=== PATIENT | male | born 1935 | race Caucasian/White ===

== ENCOUNTER 2016-07-28 07:18 | Inpatient (IN) | payer BC ==
[2016-07-26 15:32] LABS: HEMATOCRIT 29.7 % (40.0-51.0); HEMOGLOBIN 9.1 g/dL (13.6-17.8)
[2016-07-26 15:45] LABS: BUN (BLOOD UREA NITROGEN) 11 MG/DL (6-23); CALCIUM, SERUM 9.7 MG/DL (8.5-10.4); CHLORIDE, SERUM 103 MMOL/L (96-112); CO2 (CARBON DIOXIDE) 29 MMOL/L (24-34); CREATININE 0.75 MG/DL (0.70-1.30); GFR AFRICAN AMERICAN 101 ML/MIN (>=60); GFR NON AFRICAN AMERICAN 87 ML/MIN (>=60); GLUCOSE, SERUM 111 MG/DL (60-99); POTASSIUM, SERUM 4.1 MMOL/L (3.5-5.3); SODIUM, SERUM 140 MMOL/L (135-148)
--- NOTE | ~2016-07-28 | DS ---
Discharge Summary [facility] [address] [facility] [place]. [address] NAME: DIANNA KEY : 36 STATUS : DIS IN PAT#: [id number] AGE: 80 ADM/REG DATE : 07/28/16 MR#: [id number] REPORT SERV DATE: 08/16/16 DICTATED BY: CHRIS PERSAUD DATE: 08/14/16 REPORT STATUS : Draft TRANSCRIBED BY: SENG DATE: 08/14/16 Data Collection from hospitalization DISCHARGE DIAGNOSES: 1. 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 2. Obesity. 3. Diabetes mellitus type 2. 4. Hypertension. 5. History of thyroid disorder. CONSULTATIONS: None. PROCEDURES PERFORMED: 1. Diagnostic laparoscopy with conversion to the open colectomy secondary to enterotomy. 2. Sigmoid colectomy with 29 mm EEA stapled anastomosis. 3. Segmental small bowel resection with Ileo-ileostomy; all 07/28/2016. PATHOLOGY: Sigmoid resection adenocarcinoma; segments of colon and anastomotic rings. No diagnostic change. Small bowel segmental resection; submucosal hematoma, serosal adhesion, focal. No tumor identified. MEDICATIONS: Vitamin C 500 mg daily, Ziac one daily, Avapro 300 mg daily, levothyroxine sodium 125 mcg daily, minocycline 50 mg every 48 hours, ferrous sulfate 325 mg three times daily, fish oil 600 mg daily, [place] 5/325 one every six hours as needed. CONDITION AT DISCHARGE: Upon discharge, he did appear to be doing well and had no complaints. DISPOSITION: He had been discharged home to continue a regular diet with activity as discussed. He is to follow up with me in the office on 08/10/2016. HOSPITAL COURSE: This 80-year-old male was seen in the office for sigmoid colon cancer with near obstruction. He was aware of RBA of colectomy, possible colostomy, and wished to proceed with this. He was admitted for surgery and further treatment. Upon admission to the hospital, he had been taken to the operative operating room where he did undergo the above procedure. He tolerated this well and was transferred to the recovery room. On postop day 1, he did appear to be doing well and had no complaints. He was afebrile, and his vital signs were stable. He was continued on supportive care. He had been seen by MATTHIEU KennyP-BC for medical management. He was felt to be doing well postoperatively. His oral agents for his diabetes were placed on hold. He had been placed on an insulin instead. On postop day #2, he had complaints of bloating and abdominal pain. However, he had no nausea noted. He had been placed on low-dose amlodipine for his blood pressure. On postop day 3, he was noted to be less nauseated, and his blood pressure was trending downward. On postop day #4, he had no complaints noted, and his diet was being slowly advanced. He was continued on supportive care and did appear to be doing well. He had been placed back on Ziac. On postop day 5, he was tolerating oral intake and was encouraged to ambulate. He did continue to do well. As he was doing well, he was then Discharge Summary [address] [place]. [address] NAME: DIANNA KEY : 36 STATUS : DIS IN PAT#: [id number] AGE: 80 ADM/REG DATE : 07/28/16 MR#: [id number] REPORT SERV DATE: 08/16/16 DICTATED BY: CHRIS PERSAUD DATE: 08/14/16 REPORT STATUS : Draft TRANSCRIBED BY: SENG DATE: 08/14/16 discharged on postop day 6 with the above instructions. Information collected by: Ning LockwoodI.T. I submit the above information as my discharge summary. RADHA/SENG Chris Persaud M.D. / [id number] CC: Armando Gruber D.O.
--- NOTE | ~2016-07-28 | OP ---
Record Of Operation [facility] [address] [place]. [address] NAME: DIANNA KEY : 36 STATUS : ADM IN PAT#: [id number] AGE: 80 ADM/REG DATE : 07/28/16 MR#: [id number] REPORT SERV DATE: 07/28/16 DICTATED BY: CHRIS PERSAUD DATE: 07/28/16 REPORT STATUS : Draft TRANSCRIBED BY: MODL DATE: 07/28/16 DATE OF PROCEDURE: 07/28/2016 PREOPERATIVE DIAGNOSES: 1. 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 2. Obesity. 3. Diabetes mellitus type 2. POSTOPERATIVE DIAGNOSES: 1. 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 2. Obesity. 3. Diabetes mellitus type 2. PROCEDURES: 1. Diagnostic laparoscopy with conversion to the open colectomy secondary to enterotomy. 2. Sigmoid colectomy with 29 mm EEA stapled anastomosis. 3. Segmental small bowel resection with the ileoileostomy. FINDINGS: The patient was noted to have a partial injury to the small bowel with questionable full-thickness involvement upon placement of the Veress needle and the initial 8 mm laparoscope. When the camera was inserted due to question of this small bowel injury, the procedure was then converted to open laparotomy. During the laparoscopic portion, there was no evidence of any peritoneal drop mets and the large mass of the right lobe of the liver was visible on most of the anterior surface of the right lateral lobe of the liver. OPERATIVE TECHNIQUE: The patient was brought to the operating room and placed on the table in supine position. He had preoperative IV antibiotics and bowel prep. He underwent general endotracheal anesthesia and was prepped and draped in sterile fashion. A Medrano catheter was placed, and he was placed in lithotomy position. A time-out was completed after general endotracheal anesthesia. Local anesthesia was instilled to the supraumbilical skin. A 15-blade knife was used to make incision through the base of the umbilicus. The skin and fascia were elevated. The Veress needle was inserted. Water drop test was safely performed. Pneumoperitoneum was then obtained, but then it showed a leak. This was tried once again, and at this point, an Optiview 8 mm trocar was used. The abdomen was entered and insufflated. It was uncertain if this was within the bowel or the preperitoneal, and the decision was then made after evaluation of the rest of the abdomen revealed no evidence of any peritoneal drop mets to open the patient. The single supraumbilical trocar was removed. A laparotomy incision was made. The patient's left sigmoid colon was then mobilized along the white line of [place] medially and laterally, and the tumor was noted to be in the mid sigmoid colon. The entire sigmoid was then mobilized with care taken not to involve the retroperitoneal structures and the windows were created in the mesentery of the rectum and in the descending and sigmoid colon junction. The bowel was then divided with a contour stapler distally and a 75 mm linear stapler proximally. The intervening mesenteric segment was then scored with electrocautery and divided with the energy hand-held device. Record Of Operation [facility] [address] [facility] [place]. [address] NAME: DIANNA KEY : 36 STATUS : ADM IN PAT#: [id number] AGE: 80 ADM/REG DATE : 07/28/16 MR#: [id number] REPORT SERV DATE: 07/28/16 DICTATED BY: CHRIS PERSAUD DATE: 07/28/16 REPORT STATUS : Draft TRANSCRIBED BY: MODL DATE: 07/28/16 The segment was then sent to pathology, and it was noted to have gross negative margins. The rest of the liver was examined and the masses were noted on both the left and right liver. There was no evidence of any other drop mets or segmental metastasis. There was a question of small metastatic deposit in the small bowel near the enterotomy and this segment was removed. At this point, first the bowel ends were prepared and the 29 mm Sizer was easily passed. The colorectal anastomosis was then completed with a stapler and the suture line was oversewn. Water was placed in the pelvis, and it was insufflated with no evidence of any leak. There was no evidence of any bleeding or other visual abnormalities at this point. The involved small bowel segment was then identified and the mesentery was divided on either side for approximately 8 to 10 cm. The intervening mesentery was then excised. The MORGAN stapler was used with a single firing to divide the small bowel and then an ileoileostomy was created with the linear stapler. It was noted to be widely patent and the ileoileostomy was then closed with a TA60 stapler. All the suture lines of the small bowel were then oversewn with interrupted 3-0 Lembert sutures. The abdomen was once again irrigated, and there was no evidence of any other visual abnormalities. The anterior fascia was reapproximated using a 0 looped PDS suture. The subcutaneous tissues were then thoroughly irrigated and the subcutaneous tissues were reapproximated using running 3-0 Vicryl suture followed by running Monocryl subcuticular stitch. Dermabond was applied, followed by an Aquacel Ag surgical dressing and a binder. He was extubated and taken to the recovery room in stable condition. All sponge and needle counts reported correct. ELIZABETH/MODAdamaris Chris Persaud M.D. / [id number] CC: Chris Persaud M.D.
[~2016-07-28 07:18] MED LIST: ACTOS45 PO; AVAPRO300 MG PO; FERROUS SULF325 M1 PO; FISH OIL300 MG PO; GLUCOPHAGE1000 MG PO; LEVOTHYROXIN125 MCG PO; MINOCIN50 PO; VITC500 PO; ZIAC10 PO; [UNRECOGNIZED DRUG - OTHER] PO
[2016-07-28 07:48] LABS: BASOPHILS 0.6 %; BASOPHILS ABSOLUTE 0.03 10/3/uL (0.0-0.16); EOSINOPHILS 1.7 %; EOSINOPHILS ABSOLUTE 0.08 10/3/uL (0.0-0.53); HEMATOCRIT 29.2 % (40.0-51.0); IMMATURE GRANULOCYTES 0.2 %; IMMATURE GRANULOCYTES ABSOLUTE 0.01 10/3/uL (0.0-0.11); LYMPHOCYTES 20.1 %; LYMPHOCYTES ABSOLUTE 0.95 10/3/uL (0.67-4.30); MEAN CORPUS HGB CONC 30.8 g/dL (32.0-36.0); MEAN CORPUSCULAR HEMOGLOB 23.7 pg (26.0-34.0); MEAN CORPUSCULAR VOLUME 76.8 fL (80-100); MEAN PLATELET VOLUME 8.5 fL (9.2-13.0); MONOCYTES 12.3 %; MONOCYTES ABSOLUTE 0.58 10/3/uL (0.21-1.20); NEUTROPHILS 65.1 %; NEUTROPHILS ABSOLUTE 3.07 10/3/uL (2.02-8.40); PLATELET COUNT 318 10/3/uL (150-400); RBC DISTRIBUTION WIDTH 26.3 % (12.0-16.0); WHITE BLOOD CELLS 4.7 10/3/uL (4.5-10.5)
[2016-07-28 07:49] LABS: MANUAL DIFF NO %
[2016-07-28 08:44] LABS: HYPOCHROMIA 1+ (3-10/OIF) (0-2/OIF); MICROCYTES 1+ (5-10/OIF) (0-5/OIF); PLATELET ESTIMATE ADQ (ADEQUATE); RBC MORPHOLOGY ABN (NORMAL)
[2016-07-29 06:20] LABS: BASOPHILS 0.1 %; BASOPHILS ABSOLUTE 0.01 10/3/uL (0.0-0.16); EOSINOPHILS 0 %; HEMATOCRIT 31.1 % (40.0-51.0); HEMOGLOBIN 9.5 g/dL (13.6-17.8); IMMATURE GRANULOCYTES 0.2 %; IMMATURE GRANULOCYTES ABSOLUTE 0.02 10/3/uL (0.0-0.11); LYMPHOCYTES 8.3 %; LYMPHOCYTES ABSOLUTE 1.06 10/3/uL (0.67-4.30); MEAN CORPUS HGB CONC 30.5 g/dL (32.0-36.0); MEAN CORPUSCULAR HEMOGLOB 23.7 pg (26.0-34.0); MEAN CORPUSCULAR VOLUME 77.6 fL (80-100); MEAN PLATELET VOLUME 9.4 fL (9.2-13.0); MONOCYTES ABSOLUTE 1.15 10/3/uL (0.21-1.20); NEUTROPHILS 82.4 %; NEUTROPHILS ABSOLUTE 10.51 10/3/uL (2.02-8.40); RBC DISTRIBUTION WIDTH 26.8 % (12.0-16.0); RED CELL COUNT 4.01 10/6/uL (4.7-6.1)
[2016-07-29 06:21] LABS: MANUAL DIFF NO %; PLATELET COUNT 422 10/3/uL (150-400); WHITE BLOOD CELLS 12.8 10/3/uL (4.5-10.5)
[2016-07-29 06:28] LABS: BUN (BLOOD UREA NITROGEN) 8 MG/DL (6-23); CALCIUM, SERUM 8.8 MG/DL (8.5-10.4); CHLORIDE, SERUM 99 MMOL/L (96-112); CO2 (CARBON DIOXIDE) 28 MMOL/L (24-34); CREATININE 0.69 MG/DL (0.70-1.30); GFR AFRICAN AMERICAN 105 ML/MIN (>=60); GFR NON AFRICAN AMERICAN 90 ML/MIN (>=60); GLUCOSE, SERUM 112 MG/DL (60-99); POTASSIUM, SERUM 3.8 MMOL/L (3.5-5.3); SODIUM, SERUM 135 MMOL/L (135-148)
[2016-07-29 07:37] LABS: BAND NEUTROPHILS 20 %; HYPOCHROMIA 1+ (3-10/OIF) (0-2/OIF); LYMPHOCYTES 8 %; LYMPHOCYTES ABSOLUTE (CALC) 1.02 10/3/uL (0.67-4.30); MACROCYTES 1+ (5-10/OIF) (0-5/OIF); MICROCYTES 1+ (5-10/OIF) (0-5/OIF); MONOCYTES 9 %; MONOCYTES ABSOLUTE (CALC) 1.15 10/3/uL (0.21-1.20); NEUTROPHILS ABSOLUTE (CALC) 10.62 10/3/uL (2.02-8.40); PLATELET ESTIMATE SLT INC (ADEQUATE); SEGMENTED NEUTROPHIL (0) 63 %; TOTAL NUCLEATED CELLS 100
[2016-07-30 06:05] LABS: BASOPHILS 0.1 %; BASOPHILS ABSOLUTE 0.01 10/3/uL (0.0-0.16); EOSINOPHILS 0.9 %; EOSINOPHILS ABSOLUTE 0.08 10/3/uL (0.0-0.53); HEMATOCRIT 28.9 % (40.0-51.0); IMMATURE GRANULOCYTES 0.2 %; IMMATURE GRANULOCYTES ABSOLUTE 0.02 10/3/uL (0.0-0.11); LYMPHOCYTES 11.4 %; LYMPHOCYTES ABSOLUTE 0.97 10/3/uL (0.67-4.30); MEAN CORPUS HGB CONC 31.1 g/dL (32.0-36.0); MEAN CORPUSCULAR HEMOGLOB 23.7 pg (26.0-34.0); MEAN CORPUSCULAR VOLUME 76.1 fL (80-100); MEAN PLATELET VOLUME 8.9 fL (9.2-13.0); MONOCYTES 10.4 %; MONOCYTES ABSOLUTE 0.89 10/3/uL (0.21-1.20); NEUTROPHILS ABSOLUTE 6.57 10/3/uL (2.02-8.40); PLATELET COUNT 356 10/3/uL (150-400); RBC DISTRIBUTION WIDTH 25.9 % (12.0-16.0); WHITE BLOOD CELLS 8.5 10/3/uL (4.5-10.5)
[2016-07-30 06:07] LABS: MANUAL DIFF NO %
[2016-07-30 06:23] LABS: BUN (BLOOD UREA NITROGEN) 6 MG/DL (6-23); CALCIUM, SERUM 9.3 MG/DL (8.5-10.4); CHLORIDE, SERUM 98 MMOL/L (96-112); CO2 (CARBON DIOXIDE) 29 MMOL/L (24-34); CREATININE 0.64 MG/DL (0.70-1.30); GFR AFRICAN AMERICAN 108 ML/MIN (>=60); GFR NON AFRICAN AMERICAN 93 ML/MIN (>=60); GLUCOSE, SERUM 165 MG/DL (60-99); POTASSIUM, SERUM 3.5 MMOL/L (3.5-5.3); SODIUM, SERUM 134 MMOL/L (135-148)
[2016-07-30 06:50] LABS: HYPOCHROMIA 1+ (3-10/OIF) (0-2/OIF); MICROCYTES 1+ (5-10/OIF) (0-5/OIF); POLYCHROMASIA 1+ (2-5/OIF) (0-1/OIF); TEARDROP SHAPED RBCS OCC (0-2/OIF)
[2016-07-30 06:51] LABS: ELLIPTOCYTES 1+ (3-10/OIF) (0-2/OIF); HELMET CELLS OCC (0-2/OIF); TARGET CELLS OCC (1-2/OIF) (0-1/OIF)
[2016-07-30 06:52] LABS: MACROCYTES 1+ (5-10/OIF) (0-5/OIF)
[2016-07-31 06:52] LABS: BASOPHILS 0.2 %; BASOPHILS ABSOLUTE 0.01 10/3/uL (0.0-0.16); EOSINOPHILS 1.7 %; EOSINOPHILS ABSOLUTE 0.11 10/3/uL (0.0-0.53); HEMATOCRIT 29.5 % (40.0-51.0); HEMOGLOBIN 9.1 g/dL (13.6-17.8); IMMATURE GRANULOCYTES 0.3 %; IMMATURE GRANULOCYTES ABSOLUTE 0.02 10/3/uL (0.0-0.11); LYMPHOCYTES 16.6 %; LYMPHOCYTES ABSOLUTE 1.07 10/3/uL (0.67-4.30); MEAN CORPUS HGB CONC 30.8 g/dL (32.0-36.0); MEAN CORPUSCULAR HEMOGLOB 23.7 pg (26.0-34.0); MEAN CORPUSCULAR VOLUME 76.8 fL (80-100); MEAN PLATELET VOLUME 8.7 fL (9.2-13.0); MONOCYTES 9.6 %; MONOCYTES ABSOLUTE 0.62 10/3/uL (0.21-1.20); NEUTROPHILS 71.6 %; NEUTROPHILS ABSOLUTE 4.63 10/3/uL (2.02-8.40); PLATELET COUNT 334 10/3/uL (150-400); RBC DISTRIBUTION WIDTH 26.3 % (12.0-16.0); RED CELL COUNT 3.84 10/6/uL (4.7-6.1); WHITE BLOOD CELLS 6.5 10/3/uL (4.5-10.5)
[2016-07-31 06:53] LABS: MANUAL DIFF NO %
[2016-07-31 07:07] LABS: BUN (BLOOD UREA NITROGEN) 3 MG/DL (6-23); CALCIUM, SERUM 9.4 MG/DL (8.5-10.4); CHLORIDE, SERUM 102 MMOL/L (96-112); CO2 (CARBON DIOXIDE) 30 MMOL/L (24-34); CREATININE 0.41 MG/DL (0.70-1.30); GFR AFRICAN AMERICAN 130 ML/MIN (>=60); GFR NON AFRICAN AMERICAN 112 ML/MIN (>=60); GLUCOSE, SERUM 125 MG/DL (60-99); POTASSIUM, SERUM 3.5 MMOL/L (3.5-5.3); SODIUM, SERUM 138 MMOL/L (135-148)
[2016-07-31 07:22] LABS: HYPOCHROMIA 1+ (3-10/OIF) (0-2/OIF); MACROCYTES 1+ (5-10/OIF) (0-5/OIF); PLATELET ESTIMATE ADQ (ADEQUATE); POLYCHROMASIA 1+ (2-5/OIF) (0-1/OIF)
[2016-08-01 06:14] LABS: BASOPHILS 0.2 %; BASOPHILS ABSOLUTE 0.01 10/3/uL (0.0-0.16); EOSINOPHILS 2.3 %; EOSINOPHILS ABSOLUTE 0.12 10/3/uL (0.0-0.53); HEMATOCRIT 30.1 % (40.0-51.0); HEMOGLOBIN 9.2 g/dL (13.6-17.8); IMMATURE GRANULOCYTES 0.2 %; IMMATURE GRANULOCYTES ABSOLUTE 0.01 10/3/uL (0.0-0.11); LYMPHOCYTES ABSOLUTE 1.01 10/3/uL (0.67-4.30); MEAN CORPUS HGB CONC 30.6 g/dL (32.0-36.0); MEAN CORPUSCULAR HEMOGLOB 23.8 pg (26.0-34.0); MEAN CORPUSCULAR VOLUME 77.8 fL (80-100); MEAN PLATELET VOLUME 9.2 fL (9.2-13.0); MONOCYTES 10.2 %; MONOCYTES ABSOLUTE 0.54 10/3/uL (0.21-1.20); NEUTROPHILS 68.1 %; NEUTROPHILS ABSOLUTE 3.63 10/3/uL (2.02-8.40); PLATELET COUNT 408 10/3/uL (150-400); RBC DISTRIBUTION WIDTH 26.3 % (12.0-16.0); RED CELL COUNT 3.87 10/6/uL (4.7-6.1); WHITE BLOOD CELLS 5.3 10/3/uL (4.5-10.5)
[2016-08-01 06:19] LABS: MANUAL DIFF NO %
[2016-08-01 06:26] LABS: BUN (BLOOD UREA NITROGEN) 4 MG/DL (6-23); CALCIUM, SERUM 9.1 MG/DL (8.5-10.4); CHLORIDE, SERUM 102 MMOL/L (96-112); CO2 (CARBON DIOXIDE) 29 MMOL/L (24-34); CREATININE 0.55 MG/DL (0.70-1.30); GFR AFRICAN AMERICAN 115 ML/MIN (>=60); GFR NON AFRICAN AMERICAN 99 ML/MIN (>=60); GLUCOSE, SERUM 129 MG/DL (60-99); POTASSIUM, SERUM 3.6 MMOL/L (3.5-5.3); SODIUM, SERUM 139 MMOL/L (135-148)
[2016-08-01 07:08] LABS: PLATELET ESTIMATE SLT INC (ADEQUATE)
[2016-08-01 07:09] LABS: MACROCYTES 1+ (5-10/OIF) (0-5/OIF)
[2016-08-02 06:17] LABS: BUN (BLOOD UREA NITROGEN) 6 MG/DL (6-23); CALCIUM, SERUM 9.2 MG/DL (8.5-10.4); CHLORIDE, SERUM 102 MMOL/L (96-112); CO2 (CARBON DIOXIDE) 28 MMOL/L (24-34); CREATININE 0.48 MG/DL (0.70-1.30); GFR AFRICAN AMERICAN 121 ML/MIN (>=60); GFR NON AFRICAN AMERICAN 105 ML/MIN (>=60); GLUCOSE, SERUM 111 MG/DL (60-99); POTASSIUM, SERUM 3.9 MMOL/L (3.5-5.3); SODIUM, SERUM 138 MMOL/L (135-148)
[2016-08-02 06:45] LABS: BASOPHILS 0.8 %; EOSINOPHILS 2.3 %; EOSINOPHILS ABSOLUTE 0.1 10/3/uL (0.0-0.5); HEMATOCRIT 27.3 % (40.0-51.0); HEMOGLOBIN 8.9 g/dL (13.6-17.8); LYMPHOCYTES 21.4 %; LYMPHOCYTES ABSOLUTE 1.4 10/3/uL (0.7-4.3); MEAN CORPUSCULAR HEMOGLOB 24.4 pg (26.0-34.0); MEAN PLATELET VOLUME 8.6 fL (6.8-10.8); MONOCYTES ABSOLUTE 0.7 10/3/uL (0.2-1.2); NEUTROPHILS 64.5 %; NEUTROPHILS ABSOLUTE 4.1 10/3/uL (2.0-8.4); PLATELET COUNT 367 10/3/uL (150-400); RBC DISTRIBUTION WIDTH 28.6 % (12.0-16.0); RED CELL COUNT 3.63 10/6/uL (4.7-6.1); WHITE BLOOD CELLS 6.4 10/3/uL (4.5-10.5)
[2016-08-02 06:47] LABS: MANUAL DIFF NO %; MEAN CORPUS HGB CONC 32.5 g/dL (32.0-36.0); MEAN CORPUSCULAR VOLUME 75.1 fL (80-100)
[2016-08-02 07:42] LABS: ANISOCYTOSIS 4+ (>50/OIF) (0-5/OIF); BASOPHILS 1 %; BASOPHILS ABSOLUTE (CALC) 0.06 10/3/uL (0.0-0.16); EOSINOPHILS 2 %; EOSINOPHILS ABSOLUTE (CALC) 0.13 10/3/uL (0.0-0.53); LYMPHOCYTES 22 %; LYMPHOCYTES ABSOLUTE (CALC) 1.41 10/3/uL (0.67-4.30); MICROCYTES 1+ (5-10/OIF) (0-5/OIF); MONOCYTES 11 %; PLATELET ESTIMATE ADQ (ADEQUATE); RBC MORPHOLOGY ABN (NORMAL); SEGMENTED NEUTROPHIL (0) 64 %; TOTAL NUCLEATED CELLS 100
[2016-08-02 18:13] LABS: CEA 8337.5 NG/ML
[2016-08-03] MEDS ORDERED: NORCO1 TA1 PO (09:08)
== END 2016-08-03 13:45 | disposition home or self-care (01) | DRG 330 ==
LOC: SDC/OF 07:18 → PACU 12:33 → 5SO 15:26
PROVIDERS: Nurse Practitioner; Surgery
PROC: 0DBN0ZZ Excision of Sigmoid Colon, Open Approach (ICD-10-PCS; principal; 2016-07-28 08:15)
PROC: 0DB80ZZ Excision of Small Intestine, Open Approach (ICD-10-PCS; 2016-07-28 08:15)
DX: C18.7 Malignant neoplasm of sigmoid colon (principal); C78.7 Secondary malignant neoplasm of liver and intrahepatic bile duct; E11.9 Type 2 diabetes mellitus without complications; E66.9 Obesity, unspecified; Z53.31 Laparoscopic surgical procedure converted to open procedure; I10 Essential (primary) hypertension; E03.9 Hypothyroidism, unspecified; Z79.899 Other long term (current) drug therapy; Z79.84 Long term (current) use of oral hypoglycemic drugs; Z82.49 Family history of ischemic heart disease and other diseases of the circulatory system; Z86.73 Personal history of transient ischemic attack (TIA), and cerebral infarction without residual deficits
CPT/HCPCS: 36415; 80048; 82378; 82962; 83036; 83735; 85014; 85018; 85025; 86850; 86900; 86901; 88307; 88309; 88313; 88341; 88342; 93005; A9270-GY; J0360; J0690; J2250; J2270; J2405; J2710; J2795; J3010